=== PATIENT | male | born 1965 | race Caucasian/White ===

== ENCOUNTER 2019-09-24 21:43 | Inpatient (IN) | payer OTHER ==
[2019-09-24] MEDS ORDERED: SODIUM CHLORIDE 0.9% 1000ML 1,000 ML IVS ONE ×2 (21:55→22:08)
[2019-09-24] MEDS ORDERED: KETOROLAC TROMETHAMINE INJ 30 MG/ML VIAL IV ONE (21:55)
[2019-09-24] MEDS ORDERED: ACETAMINOPHEN 500 MG TAB PO ONE (21:56)
[2019-09-24] MEDS ORDERED: cefTRIAXone SODIUM 1 GM in SODIUM CHL 0.9% 50ML MIN-BAG+ 50 ML IVPB ONE (21:58)
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
--- NOTE | 2019-09-24 22:31 | RAD ---
EXAM DESCRIPTION: Chest,1 View CLINICAL HISTORY: 53 years Male fever COMPARISON: None TECHNIQUE: Portable AP view of the chest is obtained. FINDINGS IN THE CHEST: Heart: Allowing for magnification factors related to AP portable technique and body habitus, the heart is normal in size and configuration. Vasculature: [There is mild tortuosity of the aorta] There is no evidence of aortic aneurysm or acute findings. The pulmonary vascularity is normal. Mediastinum: No evidence of mass or adenopathy. Lungs: There is no focal consolidation in the lungs. Pleura: There are no discernible pleural effusions. However, the right costophrenic angle is not included in the [id number]. There are no pneumothoraces. Osseous structures: No evidence of acute fracture, osteolytic lesions or osteoblastic lesions. Tubes and catheters: None Chest wall: Unremarkable. Visualized Abdomen: Unremarkable. IMPRESSION: No significant [] radiographic abnormalities in the chest. Remainder of findings as described above. Electronically signed by: Barbara Dennison MD 09/24/2019 10:30 PM CDT
[2019-09-25] MEDS ORDERED: MORPHINE SULFATE INJ 10 MG/ML VIAL IV ONE (00:25)
[2019-09-25] MEDS ORDERED: SODIUM CHLORIDE 0.9% 1000ML 1,000 ML IVS ONE (00:25)
[2019-09-25] MEDS ORDERED: ONDANSETRON INJ 4 MG/2 ML VIAL IV ONE (00:25)
--- NOTE | 2019-09-25 01:43 | CT ---
EXAM: CT maxillofacial with contrast HISTORY: Evaluate for dental abscess COMPARISON: None. TECHNIQUE: Maxillofacial axial images acquired with IV contrast. Coronal and sagittal reformats created. Exam performed according to departmental dose-optimization program which includes automated exposure control, adjustment of mA and/or kV according to patient size, and/or use of iterative reconstruction technique. FINDINGS: No facial fracture. Poor dentition consisting of multiple dental cavities and periodontal disease. Underbite or mandibular prognathism. No evidence of facial abscess. Paranasal sinuses and mastoid air cells clear. Cervical spine degenerative disease. IMPRESSION: 1. No CT evidence of facial abscess. 2. Poor dentition consisting of multiple dental cavities and periodontal disease. Electronically signed by: Israel Yepez MD 09/25/2019 1:42 AM CDT
[2019-09-25] MEDS ORDERED: SODIUM CHLORIDE 0.9% (FLUSH) 10 ML SYG IV PRN (02:57)
[2019-09-25] MEDS ORDERED: ONDANSETRON INJ 4 MG/2 ML VIAL IV PRN (02:57)
[2019-09-25] MEDS ORDERED: IV SET AND CAP CHANGE INJ INJ SCH (03:00)
[2019-09-25] MEDS ORDERED: KCL 20MEQ/0.45% NS 1,000 ML IVS PRN (03:03)
[2019-09-25] MEDS ORDERED: metroNIDAZOLE IV PREMIX 500MG 100 ML IVPB ONE (04:07)
[2019-09-25] MEDS: metroNIDAZOLE IV PREMIX 500MG 500 MG in PREMIX BAG 1 BAG IVPB SCH ×3 (06:06→21:02)
[2019-09-25] MEDS: OMEPRAZOLE CAP 20 MG CAP PO SCH (06:06)
[2019-09-25] MEDS: ACETAMINOPHEN 325 MG TAB PO PRN ×2 (06:07→21:21)
[2019-09-25] MEDS ORDERED: IBUPROFEN 200 MG TAB PO PRN (09:16)
[2019-09-25] MEDS ORDERED: ACETAMINOPHEN IV 1000MG 1,000 MG in PREMIX BOTTLE 1 BOTTLE IVPB PRN (10:16)
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
[2019-09-25] MEDS: cefTRIAXone SODIUM 2 GM in SODIUM CHL 0.9% 100ML MINI-BAG 100 ML IVPB SCH (12:04)
[2019-09-25] MEDS ORDERED: POTASSIUM CHLORIDE 20 MEQ TAB PO ONE (12:22)
[2019-09-25] MEDS: KETOROLAC TROMETHAMINE INJ 30 MG/ML VIAL IV SCH ×2 (13:00→18:30)
[2019-09-25] MEDS: ACETAMINOPHEN W/COD #3 TAB 1 EA TAB PO PRN (13:02)
[2019-09-25] MEDS: SODIUM CHLORIDE 0.9% (FLUSH) 10 ML SYG IV SCH ×2 (15:51→21:01)
[2019-09-25] MEDS ORDERED: ENOXAPARIN SODIUM 40 MG/0.4 ML SYG SUBCU ONE (19:58)
[2019-09-25] MEDS: ENOXAPARIN SODIUM 40 MG/0.4 ML SYG SUBCU SCH (21:01)
[2019-09-26] MEDS: KETOROLAC TROMETHAMINE INJ 30 MG/ML VIAL IV SCH ×2 (00:27→06:26)
[2019-09-26] MEDS: OMEPRAZOLE CAP 20 MG CAP PO SCH (05:45)
[2019-09-26] MEDS: metroNIDAZOLE IV PREMIX 500MG 500 MG in PREMIX BAG 1 BAG IVPB SCH ×3 (05:45→21:38)
[2019-09-26] MEDS ORDERED: MAGNESIUM SULFATE PREMIX 2GM 2 GM in PREMIX BAG 1 BAG IVPB ONE (07:30)
[2019-09-26] MEDS ORDERED: POTASSIUM CHLORIDE 20 MEQ TAB PO ONE (07:31)
[2019-09-26] MEDS ORDERED: MAGNESIUM SULFATE PREMIX 2GM 50 ML IVPB ONE (07:45)
--- NOTE | 2019-09-26 08:57 | PN ---
SUPERVISING PHYSICIAN: Adal Mendez MD DATE: 09/26/19 SUBJECTIVE: The patient is sitting up in bed. His jaw is still quite tender to touch, especially on the right side, but he does feel some better. He denies chest pain, nausea or vomiting. OBJECTIVE: VITAL SIGNS: Temperature 98.2, T-max 24 hours is 99. Heart rate 70, blood pressure 156/76, respiratory rate 18, O2 saturation 94% on 1 liter nasal cannula. HEENT: The right side of his jaw is swollen slightly more than the left side. Again, he has very poor dentition. The swelling is less than yesterday. He also is very tender to palpation on that right lower jaw. RESPIRATORY: Essentially clear to auscultation bilaterally. CARDIAC: Regular rate and rhythm. NEUROLOGIC: Awake, alert and oriented times three. LABORATORY: WBCs 4.5, hemoglobin 13.3, hematocrit 38. Sodium 137, potassium 3.4, chloride 108, carbon dioxide 23. Magnesium 1.7, calcium 8.2. All other labs and films have been reviewed via the EMR. ASSESSMENT: 1. Sepsis related to extensive dental caries with no appreciable abscess. Admitting temperature was 100.7 and has gone up as high as 102.4. His heart rate was 135 and his WBCs 14,600. 2. Elevated blood pressures without an official diagnosis of hypertension. 3. History of methamphetamine use. PLAN: We will continue present supportive care. At this point, we will continue to do his IV antibiotic therapy and monitor his blood cultures. Due to the extensive infection in his mouth, I would recommend he not be discharged until Monday. I have given him some magnesium and some potassium supplementation. I will do routine labs for in the morning. We will continue to monitor the patient closely and treat as needed. [facility][id number] [facility]
[2019-09-26] MEDS: SODIUM CHLORIDE 0.9% (FLUSH) 10 ML SYG IV SCH ×2 (09:59→21:04)
[2019-09-26] MEDS: cefTRIAXone SODIUM 2 GM in SODIUM CHL 0.9% 100ML MINI-BAG 100 ML IVPB SCH (12:06)
[2019-09-26] MEDS ORDERED: IBUPROFEN 200 MG TAB PO PRN (13:00)
[2019-09-26] MEDS: ENOXAPARIN SODIUM 40 MG/0.4 ML SYG SUBCU SCH (21:03)
[2019-09-26] MEDS: ACETAMINOPHEN W/COD #3 TAB 1 EA TAB PO PRN (21:06)
[2019-09-27] MEDS: ACETAMINOPHEN W/COD #3 TAB 1 EA TAB PO PRN (04:24)
[2019-09-27] MEDS: metroNIDAZOLE IV PREMIX 500MG 500 MG in PREMIX BAG 1 BAG IVPB SCH (05:39)
[2019-09-27] MEDS: OMEPRAZOLE CAP 20 MG CAP PO SCH (06:30)
[2019-09-27] MEDS: SODIUM CHLORIDE 0.9% (FLUSH) 10 ML SYG IV SCH (08:28)
[2019-09-27 11:04] VITALS: BP 127/70; TEMP 98.2; O2SAT 94
[2019-09-27] MEDS: cefTRIAXone SODIUM 2 GM in SODIUM CHL 0.9% 100ML MINI-BAG 100 ML IVPB SCH (11:05)
[2019-09-27] MEDS ORDERED: CHLORHEXIDINE MOUTH RINSE 473 ML BTTL SWSP SCH (13:00)
[2019-09-27] MEDS ORDERED: CHLORHEXIDINE GLUCONATE 4 % 15 ML UD TOP ONE (13:04)
--- NOTE | 2019-10-21 08:10 | DS ---
SUPERVISING PHYSICIAN: Adal Mendez MD ADMISSION DIAGNOSIS: 1. Sepsis related to extensive dental caries with no appreciable abscess. Admitting temperature was 100.7 and has gone up as high as 102.4. His heart rate was 135 and his WBCs 14,600. 2. Elevated blood pressures without an official diagnosis of hypertension. 3. History of methamphetamine use. DISCHARGE DIAGNOSIS: 1. Sepsis related secondary to dental caries with no appreciable abscess, responding to antibiotics. 2. Bacteremia with Staphylococcus warneri felt to be a contamination, especially given the source of infection that was pansensitive. 2. Untreated hypertension. 3. History of methamphetamine use. REASON FOR HOSPITALIZATION: This is a 53-year-old male patient [facility] He was reported to have fever and chills that started within the last 24 hours. He reportedly had a temperature of 107 at the [facility]. He does complain of right jaw pain. He also has a headache. No neck pain. He did have one dose of Keflex at the [facility]. He has had prior history of dental caries as well as having a fairly significant tooth infection back in 2004. In the Emergency Room, his temperature was up 100.7, although he had had some Motrin prior to arrival. His heart rate was 135 and his blood pressure 166/90 with respiratory rate 20 and O2 saturation 95%. Lab work was done. His WBCs were 14,600 with a left shift on differential. Hemoglobin 14.7, hematocrit 42.3. Sodium 138, potassium 3.3, chloride 109, calcium 9.9, lactic acid 1.1, BUN 11, creatinine 0.96, troponin 0.02. Liver enzymes within normal limits. Urinalysis showed 100 of urine protein and 2 of urine urobilinogen, but otherwise unremarkable. Blood cultures were done. He received some Rocephin in the Emergency Room. Maxillofacial CT was done and shows no CT evidence of fascial abscess, poor dentition consisting of multiple dental cavities and periodontal disease. He also received fluids in the Emergency Room as well as some Ketoralac. I was called for hospital admission. LABORATORY: Discharge white count was 5,100. No left shift was noted. Chemistries showed normal electrolytes except for a low potassium of 3.1. Creatinine 0.82, magnesium 1.9. Liver functions were all within normal limits on admission. Urinalysis showed 100 of protein, otherwise within normal limits. MICROBIOLOGY: SARS, COVID testing was negative. He had one gram positive grow out of a single blood culture that was Staphylococcus warneri that was pansensitive. RADIOLOGY: Chest x-ray showed no focal consolidations in the lungs. No significant abnormalities noted in the chest per radiologic interpretation. He also had a maxillofacial CT per radiologic interpretation showed no evidence of facial abscess. There was poor dentition consistent with multiple dental cavities and periodontal disease. EKG showed sinus tachycardia at [address] with no ST or T-wave changes noted. HOSPITAL COURSE: Mr. Farias was admitted for IV antibiotics with sepsis secondary to poor dental caries with no obvious abscess. He was started on antibiotics to include Rocephin and Flagyl as he was allergic to penicillin. He was provided pain management with Toradol. He did show good response to treatment. He was felt on day of discharge to be clinically stable enough to continue with outpatient management. PLAN: Mr. Farias was discharged on 09/27/19 back to the custody of [facility]. He was to continue antibiotics with clindamycin and chlorhexidine mouthwash. He was to followup with Sidney Saldaña NP, in 2 weeks. He was to resume his usual diet. He was to increase activity as tolerated and return to the ER for any other concerning symptoms. MEDICATIONS ON DISCHARGE: 1. Clindamycin 600 mg q.8h., #84, no refills. 2. Chlorhexidine mouthwash, rinse for 30 seconds with 15 mL undiluted oral rinse after toothbrushing. CONDITION ON DISCHARGE: Stable and improved. DISPOSITION: The patient was transferred back to the [facility]. #[id number] [facility]
== END 2019-09-27 13:05 | DRG 872 ==
LOC: ER 21:43 → MS 09-25 02:10 → OBSVTOIN 09-25 02:10
PROVIDERS: ADMIT Nurse Practitioner Acute Care; ATTEND Nurse Practitioner Family
DX: A41.9 Sepsis, unspecified organism (principal); I10 Essential (primary) hypertension; K02.9 Dental caries, unspecified; Z88.0 Allergy status to penicillin; E87.6 Hypokalemia